=== PATIENT | male | born 1995 | race Caucasian/White ===

== ENCOUNTER 2025-01-03 10:16 | Emergency (ER) | payer OTHER, SELFPAY ==
--- NOTE | ~2025-01-03 | XR_ITS ---
EXAMINATION: XR finger 1st LT min 2V, 01/03/2025 10:37 CDT HISTORY: smashed injury,GEN SWELLING,palmar prox. phalanx abrasion COMPARISON: No comparisons available. Findings: No acute fracture or malalignment. No significant degenerative changes. Soft tissues unremarkable. Impression: No acute fracture or malalignment. Reviewed, dictated and finalized at location P. Impression: No acute fracture or malalignment.
[2025-01-03 10:26] VITALS: BP 124/75; PULSE 74; RESP 16; TEMP 36.8; O2SAT 100
--- NOTE | 2025-01-03 10:31 | ED_ITS ---
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 Patient reports that last night he noted the thumb swelling and having increased pain. Patient does have scabbed area to anterior and posterior mid thumb with swelling noted to his thumb no acute redness, warmth or fluctuation of tissue noted.. MD complaint: injury to: left and finger (thumb) Onset (ago): day(s) (9 days ago) Other injuries: none Handedness: right Place: work Severity scale (1-10): 3 Treatments prior to arrival: cold therapy Related Data Allergies Allergy/AdvReac Type Severity Reaction Status Date / Time No Known Allergies Allergy Verified 01/03/25 10:29 Review of Systems Review of Systems: CONSTITUTIONAL: Denies fever, chills, or sweats. EYES: Denies visual changes, redness, or discharge. ENT: Denies rhinorrhea, congestion, sore throat, or otalgia. CARDIOVASCULAR: Denies chest pain, palpitations, or edema. RESPIRATORY: Denies cough or dyspnea. GASTROINTESTINAL: Denies abdominal pain, nausea, vomiting, or diarrhea. GENITOURINARY: Denies dysuria or hematuria. SKIN: Denies rash or itching. abrasions to anterior and posterior aspect of mid left thumb MUSCULOSKELETAL: Denies back pain,positive for pain and swelling to the mid aspect of his left thumb, or myalgia. NEUROLOGIC: Denies headache, numbness, or weakness. PSYCHIATRIC: Denies anxiety or depression. All systems reviewed & are unremarkable except as noted in HPI and below PMFSH Surgical History Surgical History (Updated 01/03/25 @ 11:12 by [place] NP) H/O arthroscopy of left knee History of tonsillectomy Social History Social History (Updated 01/03/25 @ 11:12 by G[place] NP) Smoking status: Never smoker Alcohol intake: current Alcohol use details: social Substance use type: does not use Living arrangements: with family Gender identity (if verbalized by the patient): Male Comments At time of signature, agree with nursing past medical, surgical, social and family history. There is no relevant family history pertinent to the presenting complaint Exam Narrative: GENERAL: Well-appearing, well-nourished, and in no acute distress. HEAD: Normocephalic, atraumatic. EYES: PERRLA and EOMI. ENT: Nares clear, no rhinorrhea or epistaxis. Mucous membranes moist. NECK: Supple. no lymphadenopathy CHEST: Clear to auscultation. No respiratory distress.SAO2 100% on room air HEART: Regular rate and rhythm. No murmur heard. Normal peripheral pulses. ABDOMEN: Soft, nontender, nondistended, normal active bowel sounds. EXTREMITIES: Normal range of motion. No edema. Exception noted to left thumb with swelling and discomfort to mid aspect of thumb and noted abrasion to anterior and posterior aspect of thumb in same area. Patient reports increased swelling and pain since last night initial injury occurred last Wednesday. Increased pain with movement, sensation and circulation intact left thumb. SKIN: Warm, dry, no rash. NEURO: No focal deficits. Alert and oriented x3. Course Course Emergency Course: Patient is aware of diagnosis, understands and agrees to treatment plan.? Anticipatory guidance given.? Patient agrees to follow-up as directed and is aware of reasons to seek care at the emergency department. Portions of this record may have been created with voice recognition software Level of Care: Express Care Visit Vital Signs Vital signs: Vital Signs Temperature 36.8 C 01/03/25 10: Pulse Rate 74 01/03/25 10:26 Respiratory Rate 16 01/03/25 10:26 Blood Pressure 124/75 01/03/25 10:26 Pulse Oximetry 100 01/03/25 10:26 Oxygen Delivery Room Air 01/03/25 10:26 Temperature 36.8 C 01/03/25 10: Pulse Rate 74 01/03/25 10:26 Respiratory Rate 16 01/03/25 10: Blood Pressure 124/75 01/03/25 10:26 Pulse Oximetry 100 01/03/25 10:26 Oxygen Delivery Room Air 01/03/25 10:26 Reviewed MDM - Extremity Injury (Upper) Differential Diagnosis Differential diagnosis: Likely other (left thumb fracture, left thumb contusion, abrasions to left thumb, swelling left thumb) Medical Records Attestation: I reviewed the patient's medical records. Imaging Data Attestation: I personally reviewed and interpreted this imaging study as follows: My impression: no fracture noted or malalignment Radiologist's impression: [facility] [address] [place] [address] XRay Report Signed Patient: Juan Toribio : 1995 MR#: [id number] Age: 29 Acct:[id number] Loc: [facility] ADM Date: 01/03/[address]: Ordering Physician: G[place] Lake APRN Date of Service: 01/03/25 Procedure(s): XR finger 1st LT min 2V Accession Number(s): [id number] cc: G[place] APRN~ EXAMINATION: XR finger 1st LT min 2V, 01/03/2025 10:37 CDT HISTORY: smashed injury,GEN SWELLING,palmar prox. phalanx abrasion COMPARISON: No comparisons available. Findings: No acute fracture or malalignment. No significant degenerative changes. Soft tissues unremarkable. Impression: No acute fracture or malalignment. Reviewed, dictated and finalized at location P. Please be advised this is a medical document. It is intended for [id number] communication. It is written in medical language and may contain unfamiliar abbreviations or verbiage. Medical documents are intended to carry relevant information, facts as evident, and the clinical opinion of the practitioner at the time of the encounter. This report may have been done utilizing a voice recognition system. Attempts have been made to correct errors. However, there may be uncorrected grammatical, spelling, and recognition errors present. The file time of this note does not necessarily represent the time of service. Dictated By: Ortega Ruffin MD 01/03/25 1046 Signed By: <Electronically signed by Ortega Ruffin MD in OV> Critical Care Time Critical Care Time Critical Care Time: No Discharge Plan Discharge Clinical Impression: Abrasion of skin of left thumb, Localized swelling of left thumb Contusion of left thumb Qualifiers: Encounter type: initial encounter Damage to nail status: without damage Qualified Code(s): S60.012A - Contusion of left thumb without damage to nail, initial encounter Patient Disposition: Home Condition: Stable Instructions: Antibiotic Form, Contusion in Adults (ED), Abrasion (ED) Additional Instructions: Tylenol for lesser pain Ibuprofen regularly for the next 2-3 days for the inflammation. 600 mg 3 times daily with food for the next 2 days Bacitracin daily to skin abrasion areas If any further concerns follow-up with either orthopedic or hand surgeon Follow-up with PCP if further problems or concerns Ice to the area 20-30 minutes 4-6 times a day Elevate above heart If your symptoms persist, change or worsen significantly before you can contact your personal physician then please, without delay, go to the emergency department for further evaluation. Follow-up with PCP in 7-10 days or sooner if needed antibiotic as ordered complete all doses Patient Language: [place] Citizen Prescriptions: New cephalexin 500 mg capsule 500 mg PO Q8H Qty: 21 0RF Rx Instructions: take with food Follow-up/Referrals: PHYSICIAN NOT ON STAFF,NONSTAFF [Primary Care Provider] Time of Disposition: 11:02 Quality [place] Coma Scale Eyes: Open Verbal: Oriented and Alert Motor: Follows Commands Vian Coma Total Score: 15
== END 2025-01-03 11:09 | disposition home or self-care (01) ==
PROVIDERS: Emergency Provider Registered Nurse
DX: S60.312A Abrasion of left thumb, initial encounter (principal); S60.012A Contusion of left thumb without damage to nail, initial encounter; W22.8XXA Striking against or struck by other objects, initial encounter; Y99.0 Civilian activity done for income or pay; R22.32 Localized swelling, mass and lump, left upper limb
CPT/HCPCS: 73140; 99203; G0463